=== PATIENT | female | born 1975 | race Caucasian/White ===

== ENCOUNTER 2017-02-13 05:00 | Day surgery (SDC) | payer OTHER ==
[2017-02-11 10:39] VITALS: BMI 24.7
[2017-02-13] MEDS ORDERED: ROPIVACAINE HCL 0.5% 30ML VIAL ONE (09:03)
[2017-02-13] MEDS ORDERED: DEXAMETHASONE SOD PHOSPHATE/PF 10 MG/ML SDV ONE (09:03)
[2017-02-13] MEDS ORDERED: MIDAZOLAM HCL 2 MG/2 ML SINGLE DOSE VIAL ONE ×2 (09:06)
--- NOTE | 2017-02-13 09:14 | HP ---
[facility] - Chief Complaint Chief Complaint: right shoulder pain - Past Medical History Allergies/Adverse Reactions: Allergies Allergy/AdvReac Type Severity Reaction Status Date / Time No Known Allergies Allergy Verified 02/11/17 10:31 ...LMP: 01/19/17 - Current Medications Current Medications: Home Medications Medication Instructions Recorded Methotrexate/Pf [Otrexup 10 mg/0.4 10 mg WEEKLY 02/11/17 ml Auto-Inj] Thyroid,Pork [[place] Thyroid] 90 mg PO DAILY 02/11/17 Hydrocodone/Acetaminophen [[place] 1 each PO Q6H PRN #40 tablet MDD 4 02/13/17 5-325 Tablet] [facility] Physical Exam - Physical Examination General Appearance: Well Nourished, Well Developed, Alert & Oriented x3 ENT: Clear Lung: Normal air movement Heart: Regular rate & rhythm Extremities: Other (right shoulder- + ttp, decr rom, + neer, + amin, + speeds , nvi) Neurological: Intact, Alert, Oriented [facility] Impression/Plan - Impression/Plan Impression: right shoulder impingement, biceps tendinopathy Operative Procedure: right shoulder arthroscopy with SAD, possible bicep tenodesis Date to be Performed: 02/13/17
[2017-02-13] MEDS ORDERED: DEXAMETHASONE SOD PHOSPHATE 4 MG/1 ML VIAL ONE (11:49)
[2017-02-13] MEDS ORDERED: KETOROLAC TROMETHAMINE 30 MG/1 ML VIAL ONE (11:49)
[2017-02-13] MEDS ORDERED: ceFAZolin SODIUM 1 GM VIAL IVPB ONE (11:49)
[2017-02-13] MEDS ORDERED: ceFAZolin SODIUM 1 GM VIAL ONE ×2 (11:49→13:40)
[2017-02-13] MEDS ORDERED: oxyCODONE HCL 5 MG TABLET PO PRN (12:10)
[2017-02-13] MEDS ORDERED: ONDANSETRON 4 MG/2 ML VIAL IVPUSH PRN (12:10)
[2017-02-13] MEDS ORDERED: LACTATED RINGERS SOLUTION 1,000 ML IV SCH (12:15)
--- NOTE | 2017-02-13 12:50 | OP ---
Operative Note - Note: Operative Date: 02/13/17 ([facility]) Pre-Operative Diagnosis: right shoulder impingement, adhesive capsulitis, proximal biceps tendon rupture Operation: right shoulder arthroscopy with YOMI, SAD, synovectomy, and DCE Post-Operative Diagnosis: Same as Pre-op Surgeon: Ej Hernandez Print Producer: Brad Nicholson Anesthesiologist/DEPARTMENT CHAIRPERSON: Enrico Celestin Anesthesia: General, Local Specimens Removed: shavings Estimated Blood Loss (mls): 5 Operative Report Dictated: Yes
--- NOTE | 2017-02-13 13:55 | OP ---
DATE OF OPERATION: 02/13/2017 PREOPERATIVE DIAGNOSES: Right shoulder subacromial impingement, acromioclavicular joint arthritis, adhesive capsulitis, rheumatoid synovitis, and high-grade biceps tendon tear. POSTOPERATIVE DIAGNOSES: Right shoulder subacromial impingement, acromioclavicular joint arthritis, adhesive capsulitis, rheumatoid synovitis, and high-grade biceps tendon tear, complete biceps tendon tear. PROCEDURE: Right shoulder arthroscopy, subacromial decompression, distal clavicle excision, manipulation under anesthesia, and arthroscopic synovectomy. SURGEON: Ej Hernandez MD METAL HANGING SUPERVISOR: ADAN Stokes We discussed the potential risks, complications, alternatives, and benefits to surgical versus nonsurgical treatment, and the patient has elected to go forward with surgery. This patient is a 41-year-old female with a preoperative diagnosis of rheumatoid arthritis, synovitis, AC joint arthritis, subacromial impingement, adhesive capsulitis, and a high-grade partial biceps tendon tear. The patient was brought to the operating room, peripheral IV placed, IV sedation given, right interscalene block was performed, 1 g of IV Ancef was given. She was placed in the beach chair position with ample padding throughout. I did a manipulation under anesthesia. Prior to manipulation, she had significant adhesive capsulitis. I could only forward flex and abduct to about 75 degrees. After the manipulation, I could get to 130 degrees of both forward flexion and abduction. The right upper extremity was prepped and draped in sterile fashion. The bony landmarks were marked out with a marking pen. Posterior portal established. Diagnostic arthroscopy was performed. The patient had a tremendous amount of intraarticular rheumatoid synovitis. The patient had an area of synovitis in the middle bald area of the glenoid. There was some surrounding osteoarthritis. The patient had no biceps tendon whatsoever. Between the time of the MRI and now, the last few fibers must have torn and there was no evidence of it. We looked for it in the biceps tendon sheath. It was nowhere to be seen, and even the sheath had scarred down and closed. 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 The undersurface of the rotator cuff looked good except there was a lot of synovitis. An anterior portal was established under direct visualization using a spinal needle, and the ArthroCare wand was introduced into the joint and an extensive intraarticular partial synovectomy was performed. A probe was introduced. Again I looked at the labrum, which was intact, I looked at the biceps tendon, which was completely gone, and the rest of the intraarticular structures looked good. Next, our attention turned to the subacromial space. Under direct visualization, a spinal needle was used to establish a lateral portal. Green cannula was introduced into the subacromial space. Here also, the patient had a lot of rheumatoid synovitis and adhesive bursitis. An extensive debridement was performed with the ArthroCare wand, revealing a large subacromial and even larger subclavicular spur. The top surface of the rotator cuff was directly visualized. It looked quite good. There was no tear. It moved as a unit with the movement of the humeral head. A 5.5-mm oval bur was used to do a bony decompression and remove the spur on the undersurface of both the clavicle and the acromion. It was fine-tuned in reverse and a shaver introduced to fine-tune it more and remove all debris. The area was copiously irrigated and washed out, again explored. I did not see any other abnormal tissues. The decompression was quite good. There were no points of impingement. Photographs were taken. All instrumentation was removed. All fluid was removed. The arthroscopy portal was closed with 3-0 nylon sutures. The area was washed and dried, covered with 2 Aquacel dressings, and the arm was put into a sling. There were no complications during the case. Total operative time was about 40 minutes. Adele [id number]
[2017-02-13 17:04] VITALS: BP 96/58; PULSE 72; TEMP 97.8
--- NOTE | 2017-02-14 12:40 | PATH ---
Surgical Pathology Report Patient Name: LEIGH PEREZ [facility]. Rec. #: [id number] /Age/Gender: 1975 (Age: 41) / F Account: [id number] Location: [facility] SURGICAL Taken: 02/13/2017 Received: 02/13/2017 Reported: 02/14/2017 Physicians: Ej Hernandez M.D. Specimen(s) Received RIGHT SHOULDER SHAVINGS Clinical History Right shoulder impingement Final Diagnosis RIGHT SHOULDER, ARTHROSCOPIC SHAVING: PORTIONS OF SYNOVIUM, CARTILAGE, SKELETAL MUSCLE AND BONE CONSISTENT WITH ARTHROSCOPIC SHAVINGS. Electronically Signed Efrain Maki M.D. Gross Description Received in formalin, labeled "right shoulder shavings," is a 3.5 x 2.8 x 0.4 cm. aggregate of shine-yellow soft tissue fragments. A b2b sales representative portion is submitted in one cassette. /02/13/201702/13/2017
== END 2017-02-13 16:15 | disposition home or self-care (01) ==
LOC: JASU-SURG 05:00
PROVIDERS: ATTEND Orthopaedic Surgery
PROC: 0RBJ4ZZ Excision of Right Shoulder Joint, Percutaneous Endoscopic Approach (ICD-10-PCS; principal; 2017-02-13 10:30)
PROC: 0PB94ZZ Excision of Right Clavicle, Percutaneous Endoscopic Approach (ICD-10-PCS; 2017-02-13 10:30)
DX: M75.41 Impingement syndrome of right shoulder (principal); M13.811 Other specified arthritis, right shoulder; M75.01 Adhesive capsulitis of right shoulder; M65.811 Other synovitis and tenosynovitis, right shoulder
CPT/HCPCS: 84703; 88304-TC